=== PATIENT | male | born 1995 | race Two or more races ===

== ENCOUNTER 2019-11-06 02:56 | Emergency (ER) | payer SELFPAY ==
[2019-11-06] VITALS (14 sets, daily range): BP systolic 115–132; BP diastolic 65–87
[~2019-11-06] VITALS: Ht 170.2 cm; Wt 68.0 kg
--- NOTE | 2019-11-06 02:59 | NUR ---
ED Nurse Note: Pt placed in leather restraints per ERMD d/t pt threatening staff and threatening to hurt self, screaming, yelling, continuously attempting to get out of bed. [employer] placed pt on 5150 hold.
--- NOTE | 2019-11-06 03:05 | NUR ---
ED Nurse Note: pt BIBA from [employer] station [place] being combative, spitting. Per EMS, pt not cooperating; unable to provide information. Pt was belligerent; shouting and yelling at staff, spitting, threatening to hurt self and others. Awaiting ERMD at bedside
--- NOTE | 2019-11-06 03:09 | Emergency Room Report ---
History of Present Illness General Chief Complaint: Altered Level of Consciousness Source: Patient, EMS, Law Enforcement (Cruz Barr MD) Present Illness HPI Disclaimer: Please note that this report is being documented using [employer] technology. This can lead to erroneous entry secondary to incorrect interpretation by the dictating instrument. HPI: 24-year-old male history of bipolar and schizophrenia presents on 5150 legal status by [employer] and EMS. According to police, the patient called 911 stating that he needed help with mental illness. They went to his house to try to find him however initially he was not there. They eventually found him and reportedly he was stating that he was trying to arrange " by helicopter pilot instructor." He also claims that he was drinking heavily today and that he is intoxicated. The patient is altered, aggressive, lashing out on arrival. Does not provide any significant history. Police are placing him on 5150 legal status. PMH: Reported bipolar/schizophrenia PSH: Unable to obtain Allergies: Able to obtain Social Hx: Reports alcohol use today (Cruz Barr MD) Allergies: Coded Allergies: No Known Allergies (Unverified , 11/06/19) Nursing Documentation-PMH History Of Psychiatric Problem: Yes - schizo (Cruz Barr MD) Review of Systems All Other Systems: limited - Clinical condition limiting history and physical exam (Cruz Barr MD) Physical Exam Vital Signs Date Time Temp Pulse Resp B/P (MAP) Pulse Ox O2 Delivery O2 Flow Rate FiO2 11/06/19 02:55 97.9 106 20 132/86 (101) 99 Room Air General: Awake, aggressive, lashing out, agitated HEENT: NC/AT. EOMI. Cardiovascular: Tachycardic. S1 and S2 normal. No murmur appreciated Resp: Normal work of breathing. No cough, wheezing or crackles appreciated Abdomen: Abdomen is soft, nondistended. Nontender Skin: Intact. No abrasions, laceration or rash over the exposed skin MSK: Normal tone and bulk. Moving all extremities. No obvious deformity. Neuro: Awake, appears intoxicated, aggressive with staff and police. Striking out. Trying to get away. (Cruz Barr MD) Medical Decision Making Restraint Reassesment I, Cruz Barr MD, have personally evaluated this patient. Laboratory tests have been reviewed and addressed accordingly. The patient is deemed to present a danger to themselves and/or others. This is based on the exam, history ( provided by patient, EMS/[employer] and/or family) and observed or reported behavior. Attempts for non-invasive measures have been considered and/or attempted, however, have been futile. It is in the best interest of the nursing staff, the patient, and others involved in this patient's care that behavioral restraints be applied. Patient evaluation reveals the following: Delirium, combativeness, danger to staff (Cruz Barr MD) Diagnostic Impression: Primary Impression: Suicidal behavior Qualified Codes: T14.91XA - Suicide attempt, initial encounter Additional Impression: Alcohol intoxication Qualified Codes: F10.920 - Alcohol use, unspecified with intoxication, uncomplicated ER Course 24-year-old male presents on 5150 legal status for both homicidal and suicidal threats made to police earlier today. He arrives agitated and combative. Requires behavioral restraints per his own safety and for the safety of our staff. Require sedation as well. We will draw broad labs anticipation for psychiatric evaluation. (Cruz Barr MD) ER Course Patient received at signout from Dr. Trujillo patient is still on hold patient was medically cleared for evaluation a psychiatric facility patient required some sedate of medications Patient remains calm cooperative currently not suicidal pending psychiatric evaluation due to him being on a 5150 Laboratory Tests Test 11/06/19 03:50 White Blood Count 10.0 K/UL (4.8-10.8) Red Blood Count 5.13 M/UL (4.70-6.10) Hemoglobin 15.8 G/DL (14.2-18.0) Hematocrit 44.9 % (42.0-52.0) Mean Corpuscular Volume 88 FL (80-99) Mean Corpuscular Hemoglobin 30.7 PG (27.0-31.0) Mean Corpuscular Hemoglobin Concent 35.1 G/DL (32.0-36.0) Red Cell Distribution Width 10.8 % (11.6-14.8) L Platelet Count 265 K/UL (150-450) Mean Platelet Volume 6.5 FL (6.5-10.1) Neutrophils (%) (Auto) 65.7 % (45.0-75.0) Lymphocytes (%) (Auto) 24.9 % (20.0-45.0) Monocytes (%) (Auto) 6.2 % (1.0-10.0) Eosinophils (%) (Auto) 2.3 % (0.0-3.0) Basophils (%) (Auto) 1.0 % (0.0-2.0) Sodium Level 149 MMOL/L (136-145) H Potassium Level 3.8 MMOL/L (3.5-5.1) Chloride Level 109 MMOL/L (98-107) H Carbon Dioxide Level 24 MMOL/L (21-32) Anion Gap 16 mmol/L (5-15) H Blood Urea Nitrogen 8 mg/dL (7-18) Creatinine 0.8 MG/DL (0.55-1.30) Estimate Glomerular Filtration Rate > 60 mL/min (>60) Glucose Level 101 MG/DL (74-106) Calcium Level 9.2 MG/DL (8.5-10.1) Total Bilirubin 0.3 MG/DL (0.2-1.0) Aspartate Amino Transferase (AST) 17 U/L (15-37) Alanine Aminotransferase (ALT) 23 U/L (12-78) Alkaline Phosphatase 96 U/L (46-116) Total Protein 7.9 G/DL (6.4-8.2) Albumin 4.2 G/DL (3.4-5.0) Globulin 3.7 g/dL Albumin/Globulin Ratio 1.1 (1.0-2.7) Salicylates Level 2.1 ug/mL (2.8-20) L Urine Opiates Screen Negative (NEGATIVE) Acetaminophen Level < 2 MCG/ML (10-30) L Urine Barbiturates Screen Negative (NEGATIVE) Phencyclidine (PCP) Screen Negative (NEGATIVE) Urine Amphetamines Screen Negative (NEGATIVE) Urine Benzodiazepines Screen Negative (NEGATIVE) Urine Cocaine Screen Negative (NEGATIVE) Urine Marijuana (THC) Screen Positive (NEGATIVE) H Serum Alcohol 152 mg/dL (Cleveland Smalls MD) ER Course This patient was signed out to me. He has been here for almost 24 hours. Patient presents with suicidal behavior. He was placed on a 5150 as a danger to self. He is medically clear. He is excepted to [facility] for psychiatric evaluation. (Osvaldo Fry MD) Last Vital Signs Date Time Temp Pulse Resp B/P (MAP) Pulse Ox O2 Delivery O2 Flow Rate FiO2 11/06/19 02:55 97.9 106 20 132/86 (101) 99 Room Air (Cruz Barr MD) Status: improved (Osvaldo Fry MD) Disposition: XFER TO PSYCH HOSP/UNIT Condition: Stable Cruz Barr MD Nov 06, 2019 03:09 Cleveland Smalls MD Nov 06, 2019 19:58 Osvaldo Fry MD Nov 07, 2019 01:09
--- NOTE | 2019-11-06 03:10 | NUR ---
ED Nurse Note: ERMD at bedside
[2019-11-06] MEDS ORDERED: DiphenhydrAMINE 50mg/ml Inj IVP ONE (03:15)
[2019-11-06] MEDS ORDERED: LORazepam Inj 2mg/ml 1ml IV ONE (03:15)
[2019-11-06] MEDS ORDERED: Haloperidol 5mg/ml Inj IM ONE ×2 (03:15→20:15)
--- NOTE | 2019-11-06 03:17 | NUR ---
ED Nurse Note: all medications administered; pt tolerated well no s/s of distress noted. no adverse reactions noted
--- NOTE | 2019-11-06 03:55 | NUR ---
ED Nurse Note: Restraints discontinued d/t pt sleeping in bed and no longer combative per ERMD
[2019-11-06 04:08] LABS: EOSINOPHILS % (AUTO) 2.3 % (0.0-3.0); HEMATOCRIT 44.9 % (42.0-52.0); HEMOGLOBIN 15.8 G/DL (14.2-18.0); LYMPHOCYTES % (AUTO) 24.9 % (20.0-45.0); MEAN CORPUSCULAR VOLUME 88 FL (80-99); MONOCYTES % (AUTO) 6.2 % (1.0-10.0); NEUTROPHILS % (AUTO) 65.7 % (45.0-75.0); PLATELET COUNT 265 K/UL (150-450); RED BLOOD COUNT 5.13 M/UL (4.70-6.10); RED CELL DISTRIBUTION WIDTH 10.8 % (11.6-14.8)
[2019-11-06 04:19] LABS: ANION GAP 16 mmol/L (5-15); BLOOD UREA NITROGEN 8 mg/dL (7-18); CALCIUM 9.2 MG/DL (8.5-10.1); CARBON DIOXIDE 24 MMOL/L (21-32); CHLORIDE 109 MMOL/L (98-107); CREATININE 0.8 MG/DL (0.55-1.30); POTASSIUM 3.8 MMOL/L (3.5-5.1); SODIUM 149 MMOL/L (136-145)
[2019-11-06 04:23] LABS: ALANINE AMINOTRANSFERASE 23 U/L (12-78); ALBUMIN 4.2 G/DL (3.4-5.0); ALBUMIN/GLOBULIN RATIO 1.1 (1.0-2.7); ALKALINE PHOSPHATASE 96 U/L (46-116); ASPARTATE AMINO TRANSFERASE 17 U/L (15-37); BILIRUBIN,TOTAL 0.3 MG/DL (0.2-1.0)
--- NOTE | 2019-11-06 05:50 | NUR ---
ED Nurse Note: Pt sleeping in bed, no s/s of distress noted.
--- NOTE | 2019-11-06 07:10 | NUR ---
ED Nurse Note: Repeat alcohol blood serum collected
--- NOTE | 2019-11-06 07:11 | NUR ---
ED Nurse Note: report given to SUSI Carrizales
--- NOTE | 2019-11-06 07:19 | NUR ---
ED Nurse Note: meal ordered for pt. pt asleep in bed. NAD. pt iv line patent and intact. vss.
--- NOTE | 2019-11-06 09:00 | NUR ---
ED Nurse Note: PT ATE BREAKFAST, TOLERATING WELL. PT SHOWS NAD. PT DENIES SI, HARM TO OTHER AND HARM TO SELF.
--- NOTE | 2019-11-06 11:26 | NUR ---
ED Nurse Note: PT GIVEN JUICE
--- NOTE | 2019-11-06 13:30 | NUR ---
ED Nurse Note: pt ate lunch and finsihed to cartons of milk. pt is talkative and cooperative with care. vss.
--- NOTE | 2019-11-06 18:40 | NUR ---
ED Nurse Note: PT BELONGINGS IN LOCKER # 3
[2019-11-06] MEDS ORDERED: ALPRAZolam 0.5mg tab ORAL ONE (19:30)
[2019-11-06] MEDS ORDERED: DiphenhydrAMINE 50mg/ml Inj IM ONE (20:15)
[2019-11-06] MEDS ORDERED: LORazepam Inj 2mg/ml 1ml IM ONE (20:15)
--- NOTE | 2019-11-06 22:46 | NUR ---
ED Nurse Note: Pt in room, intermittently coming in and out of room, cooperative at times. Pt requesting a nicotine patch. ERMD notified. will continue to monitor
[2019-11-06 22:49] LABS: APPEARANCE,URINE CLEAR; BILIRUBIN, URINE NEGATIVE (NEGATIVE); COLOR,URINE PALE YELLOW; GLUCOSE, URINE (UA) NEGATIVE (NEGATIVE); KETONES,URINE NEGATIVE (NEGATIVE); LEUKOCYTE ESTERASE ,URINE NEGATIVE (NEGATIVE); NITRITE,URINE NEGATIVE (NEGATIVE); PH,URINE 7 (4.5-8.0); PROTEIN,URINE NEGATIVE (NEGATIVE); UROBILINOGEN,URINE NORMAL MG/DL (0.0-1.0)
--- NOTE | 2019-11-06 22:49 | NUR ---
Fern called from [employer]-missing second page of the hold and no urinalysis. Second page of the hold faxed to her at [phone]. Will call her at [phone] when we get urinalysis report.
--- NOTE | 2019-11-07 01:16 | NUR ---
ED Nurse Note: Pt resting in bed with eyes closed, non-labored breathing, no signs of distress. Will continue to monitor
[2019-11-07 01:17] VITALS: BP 128/79
[2019-11-07 02:10] VITALS: BP 128/79
--- NOTE | 2019-11-07 02:10 | NUR ---
ER DISCHARGE NOTE: Patient is cleared to be discharged per ERMD, pt is aox4, on room air, with stable vital signs. Pt being transfered via [facility] to [facility]. pt id band and iv site removed without complications. pt is able to ambulate with steady gait. pt took all belongings. Report given to SUSI Kerr
== END 2019-11-07 02:10 ==
LOC: EDBD 02:56 → EMR 03:05
DX: T14.91XA Suicide attempt, initial encounter (principal); R45.851 Suicidal ideations; F10.129 Alcohol abuse with intoxication, unspecified; F20.9 Schizophrenia, unspecified; F31.9 Bipolar disorder, unspecified; X58.XXXA Exposure to other specified factors, initial encounter; Y92.9 Unspecified place or not applicable
CPT/HCPCS: 36415; 80053; 80307; 81003; 85025; 96361; 96372; 96374; 96375; 99285; G0480; J1200; J1630; J7030